=== PATIENT | female | born 1945 | race African-American/Black ===

== ENCOUNTER 2018-07-30 13:49 | Emergency (ER) | payer MEDICARE, OTHER ==
[~2018-07-30] VITALS: Ht 167.6 cm; Wt 79.0 kg
[2018-07-30 17:24] VITALS: BP 140/87
== END 2018-07-30 17:27 | disposition home or self-care (01) ==
LOC: ER 13:49
DX: R42 Dizziness and giddiness (principal); J44.9 Chronic obstructive pulmonary disease, unspecified; I10 Essential (primary) hypertension; Z87.891 Personal history of nicotine dependence
CPT/HCPCS: 99283

== ENCOUNTER 2018-08-02 19:56 | Inpatient (IN) | payer MEDICARE ==
[~2018-08-02] VITALS: Ht 172.7 cm; Wt 79.4 kg
[2018-08-02] MEDS ORDERED: ASPIRIN 81MG TABLET PO ONE (21:00)
[2018-08-02] MEDS ORDERED: ALBUTEROL (0.083%) 2.5MG/3ML NEB HHN STA (21:12)
[2018-08-02] MEDS ORDERED: METHYLPREDNISOLONE SOD SUCC 125 MG/2 ML VIAL IV STA (21:12)
[2018-08-02] MEDS ORDERED: IPRATROPIUM BROMIDE (0.02%) 0.5MG/2.5ML NEB HHN STA (21:12)
[2018-08-02 23:24] LABS: BASOPHILS % 0.8 % (0.0-2.0); EOSINOPHILS % 0.2 % (0.0-5.0); HEMOGLOBIN. 12.9 g/dL (12.0-16.0); LYMPHOCYTES % 15.8 % (20.0-50.0); MEAN CORPUSCULAR HEMOGLOBIN 28.7 pg (28.0-32.0); MEAN CORPUSCULAR VOLUME 88.7 fL (81.0-99.0); MEAN PLATELET VOLUME 8.4 fl (7.4-10.4); MONOCYTES % 4.7 % (2.0-8.0); NEUTROPHILS % 78.5 % (40.0-76.0); PLATELET 218 x1000/uL (130-400); RED CELL DISTRIBUTION WIDTH 18.3 % (11.6-14.6)
[2018-08-02 23:26] LABS: CHLORIDE 115 mEq/L (98-107)
[2018-08-02 23:31] LABS: ETHANOL BLOOD < 10 mg/dL
[2018-08-02] MEDS ORDERED: FUROSEMIDE 40MG/4ML VIAL IVP NR (23:45)
[2018-08-03] MEDS ORDERED: ENOXAPARIN 40MG/0.4ML SYR SUBCUT SCH (00:15)
[2018-08-03] MEDS ORDERED: ONDANSETRON HCL 4MG/2ML INJ IV PRN (00:15)
[2018-08-03] MEDS ORDERED: GUAIFENESIN 200MG/10ML SUGAR FREE UDC PO PRN (00:15)
[2018-08-03] MEDS ORDERED: IPRATROPIUM/ALBUTEROL 0.5-3(2.5)MG/3ML NEB INH PRN (00:15)
[2018-08-03] MEDS ORDERED: HYDROCODONE/ACETAMINOPHEN 10/325MG TABLET PO PRN (00:15)
[2018-08-03] MEDS ORDERED: DOCUSATE SODIUM 100MG CAPSULE PO PRN (00:15)
[2018-08-03] MEDS ORDERED: HYDROMORPHONE HCL/PF 2MG/ML CPJ IV PRN (00:15)
[2018-08-03] MEDS ORDERED: MAGNESIUM/ALUMINUM HYDROXIDE/SIMETHICONE 30ML UDC PO PRN (00:15)
[2018-08-03] MEDS ORDERED: DIPHENHYDRAMINE 50MG/ML VIAL IV PRN (00:15)
[2018-08-03] MEDS ORDERED: NIFE60TA64 MT (11:33)
[2018-08-03] MEDS ORDERED: NIFE20CA MT (11:33)
[2018-08-03] MEDS ORDERED: SPIR25TA MT (11:33)
[2018-08-03] MEDS ORDERED: METO-411 MT (11:33)
[2018-08-03] MEDS ORDERED: HYDR-4134 MT (11:33)
[2018-08-03] MEDS ORDERED: PIRF267C MT (11:33)
[2018-08-03] MEDS ORDERED: FURO20TA4 MT (11:33)
[2018-08-03] MEDS ORDERED: ALPR-393 MT (11:33)
[2018-08-03] MEDS ORDERED: ATOR40TA70 MT (11:33)
[2018-08-03] MEDS ORDERED: LATA2.5D2 EACHEYE (11:33)
[2018-08-03 12:00] VITALS: BP_SYST 135; BP_DIAS 79; BP_DIAS 96
[2018-08-03] MEDS: ASPIRIN 81MG EC TABLET PO SCH (13:01)
[2018-08-03] MEDS: ENOXAPARIN 40MG/0.4ML SYR SUBCUT SCH (13:03)
[2018-08-03] MEDS: METHYLPREDNISOLONE SOD SUCC 125 MG/2 ML VIAL IV SCH ×3 (13:03→23:05)
[2018-08-03] MEDS: SODIUM CHLORIDE 0.9% INJ 3ML FLUSH IVF SCH ×2 (13:04→22:54)
[2018-08-03 14:10] LABS: T4 FREE 1.04 ng/dL (0.76-1.46)
[2018-08-03 16:00] VITALS: BP 150/85
[2018-08-03] MEDS: ACETAMINOPHEN 325MG TABLET PO PRN (17:15)
[2018-08-03] MEDS: HYDRALAZINE 20MG/ML VIAL IV PRN (18:38)
[2018-08-03] MEDS ORDERED: IOHEXOL-350 100 ML BOTTLE ONE (19:27)
[2018-08-03 20:00] VITALS: BP 146/77
[2018-08-03] MEDS: LORAZEPAM 0.5MG TABLET PO PRN (22:57)
[2018-08-04] VITALS: BP 140/63
[2018-08-04 04:00] VITALS: BP 152/82
[2018-08-04] MEDS: SODIUM CHLORIDE 0.9% INJ 3ML FLUSH IVF SCH ×3 (05:29→22:03)
[2018-08-04] MEDS: METHYLPREDNISOLONE SOD SUCC 125 MG/2 ML VIAL IV SCH ×2 (05:29→12:45)
[2018-08-04 07:41] LABS: CHLORIDE 113 mEq/L (98-107)
[2018-08-04 07:54] LABS: CREATINE KINASE 106 IU/L (26-192); LDL CHOLESTEROL 63 mg/dL (5-100)
[2018-08-04 07:56] LABS: CREATINE KINASE MB FRACTION 8.4 ng/mL (0.5-3.6); HDL CHOLESTEROL 59 mg/dL (40-59); T4 FREE 1.05 ng/dL (0.76-1.46)
[2018-08-04 08:19] LABS: BASOPHILS % 0.1 % (0.0-2.0); HEMOGLOBIN. 12.4 g/dL (12.0-16.0); LYMPHOCYTES % 10.2 % (20.0-50.0); MEAN CORPUSCULAR HEMOGLOBIN 28.5 pg (28.0-32.0); MEAN CORPUSCULAR VOLUME 87.4 fL (81.0-99.0); MEAN PLATELET VOLUME 8.3 fl (7.4-10.4); MONOCYTES % 4.2 % (2.0-8.0); NEUTROPHILS % 85.5 % (40.0-76.0); PLATELET 210 x1000/uL (130-400); RED BLOOD CELL COUNT 4.35 mill/uL (4.2-5.4); RED CELL DISTRIBUTION WIDTH 17.8 % (11.6-14.6)
[2018-08-04] MEDS: ASPIRIN 81MG EC TABLET PO SCH (08:58)
[2018-08-04] MEDS: HYDRALAZINE 20MG/ML VIAL IV PRN ×2 (08:59→20:26)
[2018-08-04] MEDS: ENOXAPARIN 40MG/0.4ML SYR SUBCUT SCH (09:00)
[2018-08-04] MEDS: LORAZEPAM 0.5MG TABLET PO PRN ×2 (09:15→21:59)
[2018-08-04 12:00] VITALS: BP 129/67
[2018-08-04 15:30] LABS: CREATINE KINASE MB FRACTION 9.3 ng/mL (0.5-3.6)
[2018-08-04 16:00] VITALS: BP 147/69
[2018-08-04] MEDS: FUROSEMIDE 40MG TABLET PO SCH (18:32)
[2018-08-04] MEDS: ACETAMINOPHEN 325MG TABLET PO PRN (18:36)
[2018-08-04 20:00] VITALS: BP 186/90
[2018-08-04] MEDS: IPRATROPIUM/ALBUTEROL 0.5-3(2.5)MG/3ML NEB HHN SCH (21:28)
[2018-08-04] MEDS: METHYLPREDNISOLONE SOD SUCC 40 MG/ML VIAL IV SCH (21:59)
[2018-08-04] MEDS: GUAIFENESIN 600MG ER TABLET PO SCH (21:59)
[2018-08-05] VITALS (7 sets, daily range): BP systolic 133–190; BP diastolic 67–109
[2018-08-05] MEDS: IPRATROPIUM/ALBUTEROL 0.5-3(2.5)MG/3ML NEB HHN SCH ×2 (01:28→08:25)
[2018-08-05] MEDS: LORAZEPAM 0.5MG TABLET PO PRN ×2 (03:22→14:34)
[2018-08-05] MEDS: SODIUM CHLORIDE 0.9% INJ 3ML FLUSH IVF SCH ×3 (05:55→21:34)
[2018-08-05] MEDS: METHYLPREDNISOLONE SOD SUCC 40 MG/ML VIAL IV SCH ×3 (05:55→21:34)
[2018-08-05] MEDS: GUAIFENESIN 600MG ER TABLET PO SCH ×2 (08:36→20:22)
[2018-08-05] MEDS: ASPIRIN 81MG EC TABLET PO SCH (08:36)
[2018-08-05] MEDS: FUROSEMIDE 40MG TABLET PO SCH (08:36)
[2018-08-05] MEDS: ENOXAPARIN 40MG/0.4ML SYR SUBCUT SCH (08:37)
[2018-08-05] MEDS: HYDRALAZINE 20MG/ML VIAL IV PRN ×2 (08:40→21:34)
[2018-08-05 10:04] LABS: CHLORIDE 108 mEq/L (98-107)
[2018-08-05] MEDS ORDERED: IPRATROPIUM BROMIDE (0.02%) 0.5MG/2.5ML NEB HHN PRN (10:45)
[2018-08-05] MEDS: IPRATROPIUM BROMIDE (0.02%) 0.5MG/2.5ML NEB HHN SCH ×3 (12:41→20:41)
[2018-08-05] MEDS ORDERED: DIGOXIN 500MCG/2ML AMP IV NR (14:30)
[2018-08-05] MEDS ORDERED: DILTIAZEM HCL 125 MG in DEXT 5% WATER 100 ML IV PRN ×2 (15:45→18:00)
[2018-08-05] MEDS: CLONIDINE 0.1MG TABLET PO PRN (23:26)
[2018-08-06] VITALS (7 sets, daily range): BP systolic 111–160; BP diastolic 65–106
[2018-08-06] MEDS: IPRATROPIUM BROMIDE (0.02%) 0.5MG/2.5ML NEB HHN SCH ×7 (04:30→20:47)
[2018-08-06] MEDS: METHYLPREDNISOLONE SOD SUCC 40 MG/ML VIAL IV SCH ×3 (06:09→23:37)
[2018-08-06] MEDS: SODIUM CHLORIDE 0.9% INJ 3ML FLUSH IVF SCH ×3 (06:10→21:29)
[2018-08-06] MEDS: ENOXAPARIN 40MG/0.4ML SYR SUBCUT SCH (09:00)
[2018-08-06] MEDS: FUROSEMIDE 40MG TABLET PO SCH (09:00)
[2018-08-06] MEDS: ASPIRIN 81MG EC TABLET PO SCH (09:00)
[2018-08-06] MEDS: GUAIFENESIN 600MG ER TABLET PO SCH ×2 (09:00→21:29)
[2018-08-06] MEDS: ACETAMINOPHEN 325MG TABLET PO PRN (09:26)
[2018-08-06] MEDS: DILTIAZEM HCL 60MG TABLET PO SCH ×3 (13:55→23:38)
[2018-08-06] MEDS: LORAZEPAM 0.5MG TABLET PO PRN ×3 (14:47→23:38)
[2018-08-06] MEDS: CLONIDINE 0.1MG TABLET PO PRN (23:38)
[2018-08-07] VITALS (11 sets, daily range): BP systolic 123–168; BP diastolic 65–95
[2018-08-07] MEDS: SODIUM CHLORIDE 0.9% INJ 3ML FLUSH IVF SCH ×3 (06:22→21:29)
[2018-08-07] MEDS: DILTIAZEM HCL 60MG TABLET PO SCH ×4 (06:23→23:26)
[2018-08-07] MEDS: FUROSEMIDE 40MG TABLET PO SCH (07:52)
[2018-08-07] MEDS: GUAIFENESIN 600MG ER TABLET PO SCH ×2 (07:52→20:15)
[2018-08-07] MEDS: ASPIRIN 81MG EC TABLET PO SCH (07:52)
[2018-08-07] MEDS: ENOXAPARIN 40MG/0.4ML SYR SUBCUT SCH (07:53)
[2018-08-07] MEDS: CLONIDINE 0.1MG TABLET PO PRN (08:06)
[2018-08-07] MEDS: METHYLPREDNISOLONE SOD SUCC 40 MG/ML VIAL IV SCH ×2 (13:01→23:26)
[2018-08-07] MEDS: IPRATROPIUM BROMIDE (0.02%) 0.5MG/2.5ML NEB HHN SCH (20:00)
[2018-08-08] VITALS (8 sets, daily range): BP systolic 116–166; BP diastolic 68–86
[2018-08-08] MEDS: IPRATROPIUM BROMIDE (0.02%) 0.5MG/2.5ML NEB HHN SCH ×4 (00:50→12:00)
[2018-08-08] MEDS ORDERED: LORAZEPAM 0.5MG TABLET PO PRN (01:15)
[2018-08-08] MEDS: DILTIAZEM HCL 60MG TABLET PO SCH ×2 (06:03→11:30)
[2018-08-08] MEDS: SODIUM CHLORIDE 0.9% INJ 3ML FLUSH IVF SCH ×2 (06:03→13:07)
[2018-08-08] MEDS: ASPIRIN 81MG EC TABLET PO SCH (08:27)
[2018-08-08] MEDS: FUROSEMIDE 40MG TABLET PO SCH (08:27)
[2018-08-08] MEDS: GUAIFENESIN 600MG ER TABLET PO SCH (08:27)
[2018-08-08] MEDS: ENOXAPARIN 40MG/0.4ML SYR SUBCUT SCH (08:28)
[2018-08-08] MEDS: CLONIDINE 0.1MG TABLET PO PRN (11:30)
[2018-08-08] MEDS: METHYLPREDNISOLONE SOD SUCC 40 MG/ML VIAL IV SCH (12:15)
[2018-08-08] MEDS ORDERED: APIXABAN 5 MG TABLET PO SCH (17:00)
== END 2018-08-08 15:05 | disposition left against medical advice (07) | DRG 196 ==
LOC: ER 19:56 → 5WST 23:45 → EDBEDREQ 23:47 → EDBEDREQTM 23:47 → ENRESERV 08-03 09:51 → 3WST 08-05 17:12
PROVIDERS: ADMIT Internal Medicine; ATTEND Internal Medicine
PROC: 4A00X4Z Measurement of Central Nervous Electrical Activity, External Approach (ICD-10-PCS; principal; 2018-08-05)
DX: J84.10 Pulmonary fibrosis, unspecified (principal); J96.21 Acute and chronic respiratory failure with hypoxia; E44.1 Mild protein-calorie malnutrition; E87.2 Acidosis; G40.89 Other seizures; I47.1 Supraventricular tachycardia; I48.4 Atypical atrial flutter; E84.9 Cystic fibrosis, unspecified; J98.11 Atelectasis; I11.0 Hypertensive heart disease with heart failure; Z53.21 Procedure and treatment not carried out due to patient leaving prior to being seen by health care provider; I95.9 Hypotension, unspecified; R73.9 Hyperglycemia, unspecified; I27.20 Pulmonary hypertension, unspecified; I44.30 Unspecified atrioventricular block; I48.91 Unspecified atrial fibrillation; I07.1 Rheumatic tricuspid insufficiency; J43.9 Emphysema, unspecified; R32 Unspecified urinary incontinence; Z87.891 Personal history of nicotine dependence; Z68.26 Body mass index [BMI] 26.0-26.9, adult; Z99.81 Dependence on supplemental oxygen; I50.9 Heart failure, unspecified
CPT/HCPCS: 36415; 71045; 71275; 80048; 80061; 80307; 80320; 80329; 82550; 82553; 83036; 83605; 83735; 83880; 84439; 84443; 84484; 85379; 93005; 93306; 93970; 94640; 96374; 96375; 99283; 99291; C1893; J0360; J1160; J1650; J1940; J2405; J2920; J2930; J7050; J7611; J7620; Q9967; G0480

== ENCOUNTER 2019-02-23 17:04 | Emergency (ER) | payer MEDICARE ==
[~2019-02-23] VITALS: Ht 165.1 cm; Wt 65.0 kg
[~2019-02-23 17:04] MED LIST: ALPR-393 MT; ATOR40TA70 MT; FURO20TA4 MT; HYDR-4134 MT; LATA2.5D2 EACHEYE; METO-411 MT; NIFE20CA MT; NIFE60TA64 MT; PIRF267C2 MT; SPIR25TA MT
[2019-02-23 18:06] LABS: CHLORIDE 108 mEq/L (98-107)
[2019-02-23 18:09] LABS: BASOPHILS % 0.9 % (0.0-2.0); EOSINOPHILS % 2.3 % (0.0-5.0); HEMATOCRIT. 39.7 % (36.0-48.0); LYMPHOCYTES % 19.5 % (20.0-50.0); MEAN CORPUSCULAR HEMOGLOBIN 27.9 pg (28.0-32.0); MEAN CORPUSCULAR VOLUME 85.5 fL (81.0-99.0); MEAN PLATELET VOLUME 8.3 fl (7.4-10.4); NEUTROPHILS % 72.3 % (40.0-76.0); PLATELET 273 x1000/uL (130-400); RED BLOOD CELL COUNT 4.64 mill/uL (4.2-5.4); RED CELL DISTRIBUTION WIDTH 16.6 % (11.6-14.6)
[2019-02-23 20:00] VITALS: BP 124/81
== END 2019-02-24 01:17 | disposition home or self-care (01) ==
LOC: ER 17:04
DX: J90 Pleural effusion, not elsewhere classified (principal); R42 Dizziness and giddiness; J44.9 Chronic obstructive pulmonary disease, unspecified; I10 Essential (primary) hypertension; Z86.79 Personal history of other diseases of the circulatory system
CPT/HCPCS: 36415; 71045; 80048; 99284

== ENCOUNTER 2023-08-07 15:44 | Emergency (ER) | payer MEDICARE ==
[~2023-08-07] VITALS: Ht 165.1 cm; Wt 59.0 kg
[~2023-08-07 15:44] MED LIST changes: -HYDR-4134 MT; +HYDR25TA78 MT; +LATA2.5D14 EACHEYE; -LATA2.5D2 EACHEYE; +NIFE-32 MT; -NIFE60TA64 MT
[2023-08-07 15:46] VITALS: O2SAT 92
[2023-08-07 16:24] VITALS: BP 0/0; PULSE 0; RESP 0; TEMP 97.6
== END 2023-08-07 18:21 ==
LOC: ER 15:44
DX: I46.9 Cardiac arrest, cause unspecified (principal); J44.1 Chronic obstructive pulmonary disease with (acute) exacerbation; I10 Essential (primary) hypertension
CPT/HCPCS: 31500; 82962; 99291